=== PATIENT | female | born 1960 | race Caucasian/White ===

== ENCOUNTER 2018-10-27 13:52 | Outpatient (CLI) | payer OTHER ==
[2018-10-27 14:53] LABS: BASOPHILS # (AUTO) 0.02 x10^3/uL (0-0.1); BASOPHILS % (AUTO) 0 % (0-1); EOSINOPHILS # (AUTO) 0.08 x10^3/uL (0-0.4); EOSINOPHILS % (AUTO) 2 % (1-7); LYMPHOCYTES # (AUTO) 1.07 x10^3/uL (1-3.4); LYMPHOCYTES % (AUTO) 22 % (22-44); MD NO; MEAN CORPUSCULAR HEMOGLOBIN 34.4 pg (27.0-34.8); MEAN CORPUSCULAR HGB CONC 34.3 g/dL (32.4-35.8); MEAN CORPUSCULAR VOLUME 100.2 fL (80-100); MEAN PLATELET VOLUME 6.2 fL (7.4-10.4); MONOCYTES # (AUTO) 0.31 x10^3/uL (0.2-0.8); MONOCYTES % (AUTO) 7 % (2-9); NEUTROPHILS # (AUTO) 3.34 x10^3/uL (1.8-6.8); NEUTROPHILS % (AUTO) 69 % (42-75); PLATELET COUNT 217 x10^3/uL (130-400); RED BLOOD COUNT 4.47 x10^6/uL (3.82-5.3); RED CELL DISTRIBUTION WIDTH 13.6 % (9.6-15.2)
[2018-10-27 15:03] LABS: INTERNATIONAL NORMALIZED RATIO 1.02 (0.93-1.1); PROTHROMBIN TIME 10.7 Seconds (9.6-11.5)
[2018-10-27 15:06] LABS: ALBUMIN 4.3 g/dL (3.4-5.0); ANION GAP 9 mmol/L (5-15); CALCIUM 9.8 mg/dL (8.5-10.1); CHLORIDE 100 mmol/L (98-107)
[2018-10-27 15:09] LABS: ALANINE AMINOTRANSFERASE 115 U/L (12-78); ALKALINE PHOSPHATASE 64 U/L (45-117); CREATININE 0.73 mg/dL (0.55-1.02); TOTAL PROTEIN 7.8 g/dL (6.4-8.2)
[2018-10-27] MEDS ORDERED: LOSA50TA14 PO (15:22)
[2018-10-27] MEDS ORDERED: Mega Red PO (15:22)
[2018-10-27] MEDS ORDERED: ETAN50PE INJ (15:22)
[2018-10-27] MEDS ORDERED: CHOL2000 PO (15:22)
[2018-10-27] MEDS ORDERED: MULT1TAB60 PO (15:22)
== END 2018-10-27 23:59 | disposition home or self-care (01) ==
LOC: STAR 13:52
PROVIDERS: ATTEND Specialist
DX: Z01.818 Encounter for other preprocedural examination (principal); I45.10 Unspecified right bundle-branch block; C54.1 Malignant neoplasm of endometrium
CPT/HCPCS: 36415; 71046; 80053; 85025; 85610; 85730; 86304; 93005

== ENCOUNTER → 2018-10-27 | Outpatient (CLI) | payer OTHER ==
[~2018-10-27] MED LIST: CHOL2000 PO; ETAN50PE INJ; LOSA50TA14 PO; MULT1TAB60 PO; Mega Red PO; OMNIPAQUE 350 MG/ML, 100ML BOTTLE ONE
== END | disposition home or self-care (01) ==
LOC: RAD 11:39
PROVIDERS: ATTEND Specialist
DX: C54.1 Malignant neoplasm of endometrium (principal); N95.0 Postmenopausal bleeding; K44.9 Diaphragmatic hernia without obstruction or gangrene; K76.0 Fatty (change of) liver, not elsewhere classified; K57.30 Diverticulosis of large intestine without perforation or abscess without bleeding; I70.0 Atherosclerosis of aorta; M47.816 Spondylosis without myelopathy or radiculopathy, lumbar region
CPT/HCPCS: 74177; Q9967

== ENCOUNTER 2018-10-31 05:23 | Day surgery (SDC) | payer OTHER ==
[2018-10-27 15:04] VITALS: BP 143/81
[~2018-10-31] VITALS: Ht 165.1 cm; Wt 100.1 kg
[~2018-10-31 05:23] MED LIST changes: -OMNIPAQUE 350 MG/ML, 100ML BOTTLE ONE
[2018-10-31] MEDS ORDERED: LACTATED RINGERS 1,000 ML IV SCH (05:58)
[2018-10-31] MEDS ORDERED: FENTANYL PF 250 MCG/5ML ONE (07:12)
[2018-10-31] MEDS ORDERED: MIDAZOLAM 1 MG/ML, 2ML ONE (07:14)
[2018-10-31] MEDS ORDERED: KETOROLAC 30 MG/1 ML ONE (07:44)
[2018-10-31] MEDS ORDERED: CEFAZOLIN 1,000 MG ONE (07:44)
[2018-10-31] MEDS ORDERED: ONDANSETRON 2MG/ML, 2ML ONE (07:44)
[2018-10-31] MEDS ORDERED: ROCURONIUM 10MG/ML,5ML ONE (07:44)
[2018-10-31] MEDS ORDERED: PROPOFOL 10 MG/ML, 20ML ONE (07:44)
[2018-10-31] MEDS ORDERED: NEOSTIGMINE 1 MG/ML, 10ML ONE (07:44)
[2018-10-31] MEDS ORDERED: GLYCOPYRROLATE 0.2MG/1ML, 5ML ONE (07:44)
[2018-10-31] MEDS ORDERED: DEXAMETHASONE 4 MG/ML, 1ML ONE (07:44)
[2018-10-31] MEDS ORDERED: hydrALAzine 20 MG/ML, 1ML ONE (07:44)
[2018-10-31] MEDS ORDERED: SUCCINYLCHOLINE 20 MG/ML, 10ML ONE (07:44)
[2018-10-31] MEDS ORDERED: FENTANYL PF 100 MCG/2ML ONE (08:38)
[2018-10-31] MEDS ORDERED: FENTANYL PF 100 MCG/2ML IV PRN (09:00)
[2018-10-31] MEDS ORDERED: LABETALOL 5MG/ML, 20ML IV PRN (09:00)
[2018-10-31] MEDS ORDERED: ONDANSETRON 2MG/ML, 2ML IV PRN (09:00)
[2018-10-31] MEDS ORDERED: ACETAMINOPHEN 325 MG TABLET PO PRN (09:00)
[2018-10-31] MEDS ORDERED: hydrALAzine 20 MG/ML, 1ML IV PRN (09:00)
[2018-10-31] MEDS ORDERED: BUPIVACAINE/PF 0.25% INFIL ONE (09:34)
[2018-10-31] MEDS ORDERED: INDOCYANINE GREEN 25 MG VIAL INJ ONE (09:34)
[2018-10-31] MEDS ORDERED: EPINEPHRINE 1 MG/ML, 1ML INFIL ONE (09:35)
[2018-10-31] MEDS ORDERED: HEPARIN 1,000 UNITS/ML, 10ML IV ONE (10:52)
[2018-10-31] MEDS: HYDROmorphone 2 MG/ML, 1ML IVPush PRN ×2 (11:20→11:45)
[2018-10-31] MEDS ORDERED: HYDROmorphone 2 MG/ML, 1ML ONE (11:21)
[2018-10-31] MEDS ORDERED: OXYcodone 5 MG/5 ML ORAL.SOL UDC ONE (11:35)
[2018-10-31] MEDS: OXYcodone 5 MG/5 ML ORAL.SOL UDC PO PRN ×2 (12:06→12:41)
== END 2018-10-31 18:30 | disposition home or self-care (01) ==
LOC: OUT 05:23
PROVIDERS: ATTEND Specialist
DX: C54.1 Malignant neoplasm of endometrium (principal); N95.0 Postmenopausal bleeding; N88.8 Other specified noninflammatory disorders of cervix uteri; N83.312 Acquired atrophy of left ovary; N83.311 Acquired atrophy of right ovary; I10 Essential (primary) hypertension; E78.5 Hyperlipidemia, unspecified; Z72.89 Other problems related to lifestyle
CPT/HCPCS: 36415; 38572; 58552; 86850; 86900; 88112; 88305; 88307; 88309; 88333; J0171; J0330; J0360; J0690; J1100; J1170; J1644; J1885; J2250; J2405; J2704; J2710; J3010; J3490; J7120